=== PATIENT | female | born 1930 | race Caucasian/White ===

== ENCOUNTER → 2017-01-27 | Outpatient (CLI) | payer OTHER, MEDICARE ==
[~2017-01-27] VITALS: Ht 147.3 cm; Wt 42.6 kg
[~2017-01-27] MED LIST: ALLEGRA ALLERG180 MG PO; ALPRAZOLAM 0.50.5 M1 PO; ASPIR 8181 MG PO; ATENOLOL; BACTRIM DS TAB1 EACH PO; CEFTIN500 MG PO; CLARITIN-D 24 H1 TA1 PO; COLACE100 MG PO; COZAAR 50 MG TA50 M2 PO; FLONASE 0.05%50 MCG NASAL; GAVISCON ES CH1 EAC1 PO; HYOSCYAMINE0.15 M1 PO; LIBRAX PO; LOMOTIL TABLET1 EACH PO; LOPRESSOR25 PO; METOPROLOL SUCC50 MG PO; MUCINEX TA600 MG/TA2 PO; MYRBETRIQ25 MG PO; NEXIUM40 MG PO; NYSTATIN 1100000 U/M SWISH&SPIT; OMEPRAZOLE; ONDANSETRON HCL4 M2 PO; PAXIL10 MG; PEPCID20 MG PO; PRILOSEC 20 MG20 MG PO; PROBIOTIC1 EAC1 PO; TENORMIN25 MG PO; TUMS PO; TYLENOL325 MG PO; VITAMIN D1000 UNI1 PO; ZOFRAN ODT4 MG PO; ZOLOFT; ZOLOFT50 MG PO
--- NOTE | ~2017-01-27 | P ---
[facility] [place] [address] PROCEDURE REPORT Name: DEVENPONCHO VINCE Room #: REG [facility] Ximena#: [id number] Admission: 01/27/17 Attend Phys: Tai Brandt Discharge: Date of : [birth year] Report #: [id number] THIS REPORT FOR: //name// CC: Tai Young MD DATE OF SERVICE: 01/27/2017 PROCEDURE PERFORMED: Upper endoscopy with esophageal dilation. HISTORY OF PRESENT ILLNESS: The patient is an 86-year-old female with a history of dysphagia that has been ongoing for months. She does report some mild heartburn symptoms at times. She is on Nexium on a daily basis. Plan is for EGD with possible dilation. DESCRIPTION OF PROCEDURE: The risks and benefits of the procedure were explained to the patient, those risks including but not limited to bleeding, perforation, the risk of sedation. She understood these risks and gave informed consent. Sedation was given using propofol per anesthesia. Next, using a standard Guestyn upper endoscope, the scope was placed in the patient's mouth and advanced under direct vision through the esophagus, stomach and into the second portion of the duodenum. The larynx was normal in appearance. The esophagus was somewhat tortuous but otherwise normal. There was no stricture noted. No evidence of esophagitis. Upon entering the stomach, there was an obvious large hiatal hernia. It was difficult to advance the scope into the pylorus because of this, but I was able to advance the scope through the pylorus and into the duodenum. Overall, the gastric mucosa was normal. The pylorus was normal and patent. The duodenal bulb, first and second portion were all normal. The scope was then brought back into the patient's stomach and a Savary guidewire was inserted through the scope, leaving the guidewire in place as the scope was then withdrawn. Next, a 45-[place] Savary dilation of the esophagus was then performed without difficulty. The wire and dilator were removed. The scope was reintroduced into the patient's stomach. There was no evidence of mucosal tear after dilation. The scope was then withdrawn and the procedure terminated. The patient tolerated the procedure well. IMPRESSION: 1. Large hiatal hernia. This may be contributing to her dysphagia. 2. Otherwise, normal upper endoscopy. RECOMMENDATIONS: Observe the patient post dilation. [address] [address] PROCEDURE REPORT Name: PONCHO CARVALHO Room #: REG JORDANA Bueno#: [id number] Admission: 01/27/17 Attend Phys: Tai Brandt Discharge: Date of : [birth year] Report #: [id number] Thank you for allowing me to participate in her care. <ELECTRONICALLY SIGNED> By: Tai Grant MD 01/29/17 [id number] 1201 Tai Grant MD /nt
== END ==
LOC: GI 08:02
DX: K44.9 Diaphragmatic hernia without obstruction or gangrene (principal); K21.9 Gastro-esophageal reflux disease without esophagitis; K90.0 Celiac disease; I10 Essential (primary) hypertension; Z86.73 Personal history of transient ischemic attack (TIA), and cerebral infarction without residual deficits
CPT/HCPCS: 62110; 62900